=== PATIENT | male | born 1985 | race Two or more races ===

== ENCOUNTER 2016-09-17 20:17 | Emergency (ER) | payer OTHER ==
[~2016-09-17] VITALS: Ht 177.8 cm; Wt 102.1 kg
--- NOTE | 2016-09-17 20:23 | NUR ---
PT BIBA#102 PT WAS FOUND FACE DOWN IN A TENT, PT WAS GIVEN 2MG OF NARCAN BY EMS, PT IS ALERT AND AWAKE NOW. PT AOX4 RR EVEN AND UNLABORED. NO SOB NOTED. NAD NOTED. NO NVD AT THIS TIME. PT NOT DIAPHORETIC. PT GOWNED AND PLACED ON MONITOR WAITING FOR MD CARROLL. PER RA PLACED IV 18G ON LEFT HAND.
--- NOTE | 2016-09-17 20:28 | NUR ---
PT REFUSED IV AND BLOOD DRAW. RISK AND BENEFITS EXPLAINED X3. PT STRONGLY REFUSED. INFORMED DR. LIMA
--- NOTE | 2016-09-17 20:31 | NUR ---
DR. LIMA AT BEDSIDE FOR EVAL.
--- NOTE | 2016-09-17 20:34 | NUR ---
PT REFUSED V/S. RISK AND BENEFITS EXPLAINED X3. PT STRONGLY REFUSED.
--- NOTE | 2016-09-17 20:34 | NUR ---
pt removed IV Catheter intact and site benign. Pressure and 4x4 applied to site. No bleeding noted.
--- NOTE | 2016-09-17 20:45 | NUR ---
PT CALLED [facility] [phone]. SPOKE TO [place].
--- NOTE | 2016-09-17 20:55 | NUR ---
XRAY AT BEDSIDE FOR CXR
--- NOTE | 2016-09-17 21:00 | NUR ---
IV STARTED ON RIGHT AC 18, LABS DRAWN. PT REFUSED UA. AWARE.
[2016-09-17 21:11] LABS: BASOPHILS % (AUTO) 0.3 % (0.0-2.0); EOSINOPHILS # (AUTO) 0.2 /CMM (0.0-0.7); EOSINOPHILS % (AUTO) 1.7 % (0.0-6.0); HEMATOCRIT 44 % (39-51); HEMOGLOBIN 14.6 g/dL (13.5-17.5); LYMPHOCYTES # (AUTO) 2.2 /CMM (0.8-4.8); MEAN CORPUSCULAR HEMOGLOBIN 29 PG (26.0-33.0); MEAN CORPUSCULAR HGB CONC 33 g/dl (31.0-36.0); MEAN CORPUSCULAR VOLUME 87 fL (80-96); MONOCYTES # (AUTO) 0.8 /CMM (0.1-1.30); MONOCYTES % (AUTO) 9.3 % (2.0-12.0); NEUTROPHILS # (AUTO) 5.8 /CMM (1.8-8.9); NEUTROPHILS % (AUTO) 64.7 % (43.0-81.0); PLATELET COUNT (AUTO) 127 /CMM (150-450); RDW COEFFICIENT OF VARIATION 13.2 (11.5-15.0); RED BLOOD CELL COUNT(AUTO) 5.06 MIL/uL (4.5-6.0)
--- NOTE | 2016-09-17 21:20 | NUR ---
PT REFUSED TO PROVIDE UA. DR. CLARENCE WILLIAM.
[2016-09-17 21:28] LABS: CALCIUM, SERUM 8.6 mg/dL (8.5-10.1); CARBON DIOXIDE 25 mmol/L (21-32); CHLORIDE 105 mmol/L (98-107); CREATININE 1.1 mg/dL (0.6-1.3); GLUCOSE 124 mg/dL (74-106); POTASSIUM 3.6 mmol/L (3.5-5.1); SODIUM SERUM 141 mmol/L (136-145); UREA NITROGEN, BLOOD 20 mg/dL (7-18)
[2016-09-17 21:34] LABS: ALANINE AMINOTRANSFERASE 35 U/L (12-78); ALBUMIN 4.1 g/dL (3.4-5.0); ALCOHOL, BLOOD < 3 mg/dL (0-0); ALKALINE PHOSPHATASE 62 U/L (46-116); ASPARTATE AMINOTRANSFERASE 21 U/L (15-37); BILIRUBIN,DIRECT 0.1 mg/dL (0.0-0.2); BILIRUBIN,TOTAL 0.6 mg/dL (0.2-1.0); SALICYLATE 2.5 mg/dL (2.8-20.0); TOTAL PROTEIN, SERUM 7.4 g/dL (6.4-8.2)
[2016-09-17 21:35] LABS: ACETAMINOPHEN 0 ug/ml (10-30)
[2016-09-17 21:36] LABS: TROPONIN I < 0.017 ng/mL (0.00-0.056)
[2016-09-17] MEDS ORDERED: ONDANSETRON HCL/PF 4 MG/2 ML VIAL ONE (22:22)
[2016-09-17] MEDS: ONDANSETRON HCL/PF - ER 4 MG/2 ML VIAL IV ONE (22:32)
--- NOTE | 2016-09-17 22:32 | NUR ---
PT C/O FEELING NAUSEOUS. DR. LIMA AWARE. VERBAL ORDERS TO GIVE PT ZOFRAN 4MG IVP ONE TIME NOW. PT MEDICATED.
--- NOTE | 2016-09-17 23:15 | NUR ---
PT ADMITS TO USING HEROIN. DR. LIMA AWARE.
[2016-09-17] MEDS ORDERED: IV SET PRIMARY 1 EA INFUS.SET MC ONE (23:22)
[2016-09-17] MEDS ORDERED: IV NS 0.9% 1,000 ML ONE (23:22)
[2016-09-17] MEDS: IV NS 0.9% 1,000 ML BAG IV ONE (23:28)
--- NOTE | 2016-09-17 23:28 | NUR ---
VERBAL ORDERS PER DR. LIMA TO GIVE PT IV 1L NS BOLUS ONE TIME. PT MEDICATED.
--- NOTE | 2016-09-18 01:25 | NUR ---
IV removed. Catheter intact and site benign. Pressure and 4x4 applied to site. No bleeding noted. Patient discharged to home in stable condition. Written and verbal after care instructions given. Patient verbalizes understanding of instruction.ambulatory with a steady gait
[2016-09-18 01:26] VITALS: BP 132/68
== END 2016-09-18 01:27 | disposition home or self-care (01) ==
LOC: ER 20:17
DX: T40.2X1A Poisoning by other opioids, accidental (unintentional), initial encounter (principal); F17.200 Nicotine dependence, unspecified, uncomplicated; R79.89 Other specified abnormal findings of blood chemistry; Y92.89 Other specified places as the place of occurrence of the external cause; Y93.89 Activity, other specified; Y99.8 Other external cause status
CPT/HCPCS: 36415; 71010; 80048; 80076; 80329; 84484; 85025; 93005; 96361; 96374; 99285; A4606; G0480 ×2; J2405; J7030; Z7610; G6039-TC

== ENCOUNTER 2018-04-15 01:16 | Emergency (ER) | payer MEDICAID, OTHER ==
[~2018-04-15] VITALS: Ht 185.4 cm; Wt 131.5 kg
[2018-04-15 01:43] VITALS: BP 131/94
[2018-04-15] MEDS ORDERED: AMOX/CLAVULANATE 875 MG TABLET PO ONE (03:00)
[2018-04-15] MEDS ORDERED: DEXAMETHASONE SOD PHOSPHATE 4 MG/ML VIAL IM ONE (03:00)
[2018-04-15] MEDS ORDERED: HYDROCODONE/APAP 5/325MG 1 EACH TABLET PO ONE (03:00)
[2018-04-15] MEDS ORDERED: AMOX/CLAVULANATE 875 MG TABLET ONE (03:13)
[2018-04-15] MEDS ORDERED: HYDROCODONE/APAP 5/325MG 1 EACH TABLET ONE (03:13)
[2018-04-15] MEDS ORDERED: DEXAMETHASONE SOD PHOSPHATE 10 MG/ML VIAL ONE (03:14)
== END 2018-04-15 03:27 | disposition home or self-care (01) ==
LOC: ER 01:24
DX: J02.0 Streptococcal pharyngitis (principal); F98.8 Other specified behavioral and emotional disorders with onset usually occurring in childhood and adolescence; F17.200 Nicotine dependence, unspecified, uncomplicated; Z98.890 Other specified postprocedural states
CPT/HCPCS: 87400; A4606; J1100; Z7610

== ENCOUNTER 2018-10-24 01:52 | Emergency (ER) | payer OTHER ==
[~2018-10-24] VITALS: Ht 185.4 cm; Wt 102.1 kg
[2018-10-24 02:17] VITALS: BP 112/81
== END 2018-10-24 04:03 ==
LOC: ER 02:01
DX: S83.92XA Sprain of unspecified site of left knee, initial encounter (principal); R56.9 Unspecified convulsions; F10.10 Alcohol abuse, uncomplicated; F17.200 Nicotine dependence, unspecified, uncomplicated; Y90.9 Presence of alcohol in blood, level not specified; Z98.890 Other specified postprocedural states; W22.8XXA Striking against or struck by other objects, initial encounter; Y93.I9 Activity, other involving external motion; Y92.410 Unspecified street and highway as the place of occurrence of the external cause; Y99.8 Other external cause status
CPT/HCPCS: 73564-TC

== ENCOUNTER 2021-01-15 13:40 | Emergency (ER) | payer MEDICAID, OTHER ==
[~2021-01-15] VITALS: Ht 185.4 cm; Wt 127.0 kg
[2021-01-15 14:03] VITALS: BP 135/103
[2021-01-15] MEDS ORDERED: PRED50TA PO (14:48)
[2021-01-15] MEDS ORDERED: IBUP-1957 PO (14:48)
--- NOTE | 2021-01-15 15:07 | NUR ---
Patient discharged to home in stable condition. Written and verbal after care instructions given. Patient verbalizes understanding of instruction.
== END 2021-01-15 15:06 | disposition home or self-care (01) ==
LOC: ER 13:45
DX: G57.92 Unspecified mononeuropathy of left lower limb (principal); F98.8 Other specified behavioral and emotional disorders with onset usually occurring in childhood and adolescence; F17.200 Nicotine dependence, unspecified, uncomplicated; Z98.890 Other specified postprocedural states; Z79.899 Other long term (current) drug therapy

== ENCOUNTER 2021-10-22 06:21 | Emergency (ER) | payer MEDICAID ==
[~2021-10-22] VITALS: Ht 185.4 cm; Wt 81.6 kg
[~2021-10-22 06:21] MED LIST: IBUP-1957 PO; PRED50TA PO
--- NOTE | 2021-10-22 06:37 | NUR ---
BIBS C/O ABSCESS ON NOSE, "POPPED IT YESTERDAY, NOW LEFT SIDE OF FACE SWOLLEN". PATIENT ALERT AND ORIENTED X4. AMBULATORY WITH NON LABORED BREATHING IN BED 19 AWAITING MD CARROLL.
[2021-10-22 07:38] LABS: BASOPHILS % (AUTO) 0.8 % (0.0-2.0); HEMATOCRIT 38 % (39-51); HEMOGLOBIN 12.8 g/dL (13.5-17.5); LYMPHOCYTES % (AUTO) 18.9 % (20.0-44.0); MEAN CORPUSCULAR HGB CONC 33 g/dl (31.0-36.0); MEAN CORPUSCULAR VOLUME 91 fL (80-96); MONOCYTES # (AUTO) 0.6 K/uL (0.1-1.30); MONOCYTES % (AUTO) 10.7 % (2.0-12.0); NEUTROPHILS # (AUTO) 3.6 K/uL (1.8-8.9); NEUTROPHILS % (AUTO) 66.6 % (43.0-81.0); PLATELET COUNT (AUTO) 211 K/uL (150-450); RED BLOOD CELL COUNT(AUTO) 4.23 MIL/uL (4.5-6.0); WHITE BLOOD COUNT (AUTO) 5.4 K/uL (4.3-11.0)
[2021-10-22 07:46] LABS: CALCIUM, SERUM 8.7 mg/dL (8.5-10.1); CREATININE 0.7 mg/dL (0.6-1.3); POTASSIUM 2.9 mmol/L (3.5-5.1)
[2021-10-22] MEDS ORDERED: IOHEXOL-300 100 ML VIAL IV ONE (08:00)
[2021-10-22] MEDS ORDERED: IV NS 0.9% 250 ML IV ONE (08:01)
[2021-10-22] MEDS ORDERED: POTASSIUM CHLORIDE 20 MEQ TAB.PRT.SR PO ONE ×2 (08:30→08:31)
--- NOTE | 2021-10-22 10:25 | NUR ---
PT TAKEN TO RADIOLOGY
--- NOTE | 2021-10-22 10:40 | NUR ---
PT BACK FROM RADIOLOGY
[2021-10-22] MEDS ORDERED: CLIN300C12 PO (12:06)
[2021-10-22] MEDS ORDERED: CLINDAMYCIN HCL 150 MG CAPSULE ONE (12:13)
--- NOTE | 2021-10-22 12:22 | NUR ---
Note undone in EDM - 10/22/21 at 1225 by JOSSUE IV removed. Catheter intact and site benign. Pressure and 4x4 applied to site. No bleeding noted.Patient discharged to home in stable condition. Written and verbal after care instructions given. Patient verbalizes understanding of instruction.
--- NOTE | 2021-10-22 12:25 | NUR ---
IV removed. Catheter intact and site benign. Pressure and 4x4 applied to site. No bleeding noted.Patient given written and verbal discharge instructions. Patient verbalizes understanding of instructions. Patient is ambulatory with steady gait. Refuses offer of intermediate placement. Patient given list of available shelters in surrounding area.
[2021-10-22 12:26] VITALS: BP 130/63
[2021-10-22] MEDS ORDERED: CLINDAMYCIN HCL 150 MG CAPSULE PO ONE (12:30)
== END 2021-10-22 12:27 | disposition home or self-care (01) ==
LOC: ER 06:21
DX: L03.213 Periorbital cellulitis (principal); H00.035 Abscess of left lower eyelid; F17.200 Nicotine dependence, unspecified, uncomplicated; Z86.69 Personal history of other diseases of the nervous system and sense organs; Z79.899 Other long term (current) drug therapy
CPT/HCPCS: 36415; 70481; 80048; 85025; 99285; J7050; Q9967